=== PATIENT | female | born 1955 | race Caucasian/White ===

== ENCOUNTER → 2023-03-16 | Outpatient (CLI) | payer MEDICARE ==
--- NOTE | 2023-03-16 11:19 | MM ---
Reason for Exam: Follow-up of a probably benign lesion. Last mammogram was performed 4 year(s) and 4 month(s) ago. Patient History: Menarche at age 13. First Full-Term at age 21. Postmenopausal. 2019, Stereotactic Core Biopsy - 3D on the Left side. Risk Values: Meaghan 5 year model risk: 1.8%. NCI Lifetime model risk: 6.1%. Tissue Density: There are scattered fibroglandular densities. Findings: Analyzed By CAD. Pattern appears symmetrical and stable. Chronic nodularity is within the left breast. Skin tag is present in the upper outer left breast. A core marker is within the left breast. No significant interval changes are evident. No suspicious groups of microcalcifications, spiculated or lobular masses, architectural distortion or other secondary signs of malignancy are mammographically apparent. Overall Assessment: Benign, BI-RAD 2 Management: Screening Mammogram of both breasts in 1 year. A negative mammogram report should not preclude additional follow up of suspicious palpable abnormalities. Patient should continue monthly self breast exam. A clinical breast exam by your physician is recommended on an annual basis and results should be correlated with mammographic findings. Electronically signed and approved by: Kadeem Hopson D.O. Radiologis
== END | disposition home or self-care (01) ==
LOC: RADMAMWWP 10:50
PROVIDERS: ATTEND Family Medicine
DX: R92.8 Other abnormal and inconclusive findings on diagnostic imaging of breast (principal); Z78.0 Asymptomatic menopausal state
CPT/HCPCS: 77066; G0279; 77062

== ENCOUNTER → 2024-03-19 | Outpatient (CLI) | payer MEDICARE ==
--- NOTE | 2024-03-22 08:50 | MM ---
Reason for Exam: Screening (asymptomatic). Last screening mammogram was performed 12 month(s) ago. Patient History: Menarche at age 13. First Full-Term at age 21. Postmenopausal. 2019, Stereotactic Core Biopsy - 3D on the Left side. Risk Values: Meaghan 5 year model risk: 1.8%. NCI Lifetime model risk: 5.9%. Prior Study Comparison: 10/13/2018 Bilateral Screening Mammogram, Unknown. 10/26/2018 Bilateral Screening Mammogram, Unknown. 03/16/2023 Bilateral MG 3D diag mammo w/cad [facility]. Tissue Density: There are scattered areas of fibroglandular density. Findings: Analyzed By CAD. There is no suspicious group of microcalcifications or new suspicious mass in either breast. Postbiopsy clip marker noted. Stable chronic nodularity left breast. Overall Assessment: Benign, BI-RAD 2 Management: Screening Mammogram of both breasts in 1 year. . Patient should continue monthly self-breast exams. A clinical breast exam by your physician is recommended on an annual basis. This exam should not preclude additional follow-up of suspicious palpable abnormalities. Note on Meaghan scores and lifetime risk: 1. A Meaghan score greater than 3% is considered moderate risk. If this is the case, consider specialist referral to assess eligibility for a risk reducing agent. 2. If overall lifetime risk for the development of breast cancer is 20% or higher, the patient may qualify for future screening with alternating mammogram and breast MRI. [facility], , 03/22/2024 8:47 AM. Electronically signed and approved by: Dallas Miguel M.D. Radiologis
== END | disposition home or self-care (01) ==
LOC: RADMAMWWP 15:53
PROVIDERS: ATTEND Family Medicine
DX: Z12.31 Encounter for screening mammogram for malignant neoplasm of breast
CPT/HCPCS: 77063; 77067